=== PATIENT | male | born 1985 | race Caucasian/White ===

== ENCOUNTER 2016-12-10 01:37 | Emergency (ER) | payer SELFPAY ==
[~2016-12-10] VITALS: Ht 190.5 cm; Wt 67.6 kg
[2016-12-10 01:42] VITALS: Ht 190.5 cm; Wt 67.6 kg
[2016-12-10] MEDS ORDERED: ESOM20CA PO (02:01)
[2016-12-10] MEDS ORDERED: OPTIRAY 320 IV PRN (02:30)
--- NOTE | 2016-12-10 02:35 | EMERGENCY ROOM VISIT NOTE ---
History Report prepared by Mario: Mary Grace Clemens Under the Supervision of: Dr. Elda Sanches M.D. First contact with patient: 01:47 Chief Complaint: RIB PAIN Stated Complaint: ABDOMINAL PAIN History of Present Illness The patient is a 31 year old male who presents to the Emergency Room with complaints of severe and worsening left lower rib pain starting 5 days ago. He was wrestling 5 days ago when he was thrown on the ground flat on his back. He has worsening pain with breathing and coughing. The patient denies fevers, chills, abdominal pain, or any other complaints. Source of History: patient Onset: 5 days ago Position: other (left lower rib) Symptom Intensity: severe Timing: worsening Modifying Factors (Worsening): breathing, other (coughing) Associated Symptoms: No abdominal pain, No chills, No fevers Review of Systems See HPI for pertinent positives & negatives. A total of 10 systems reviewed and were otherwise negative. Past Medical & Surgical Medical Problems: (1) No Known Active Medical Problems Family History Patient reports no known family medical history. Social History Smoking Status: Never Smoker Marital Status: single Occupation Status: employed Current/Historical Medications Scheduled Esomeprazole Magnesium (Nexium), 20 MG PO BID Allergies Coded Allergies: No Known Allergies (Unverified , 12/10/16) Physical Exam Vital Signs Date Time Temp Pulse Resp B/P Pulse Ox O2 Delivery O2 Flow Rate FiO2 12/10/16 04:16 36.8 86 18 124/76 98 12/10/16 04:08 86 18 124/76 98 Room Air 12/10/16 03:04 90 16 141/76 100 Room Air 12/10/16 01:42 36.8 90 16 124/81 95 Room Air Physical Exam Vital signs reviewed. General: Well-appearing, in no significant distress. HEENT: No scleral icterus, PERRLA, neck supple. Atraumatic. Chest: Mild tenderness along the right anterior chest. Cardiovascular: Regular rate and rhythm, no extra sounds. Pulmonary: Clear to auscultation bilaterally, normal work of breathing. Abdomen: Soft, nontender, nondistended, positive bowel sounds. : Ecchymotic left hemiscrotum with pea-sized mass near the epididymis, no testicular torsion, no particular tender area. Musculoskeletal: Atraumatic, no peripheral edema. Neurologic: Patient awake alert and oriented x 3, full strength in all 4 extremities. Cranial nerves 2 through 12 grossly intact. Skin: Warm, dry, no rash Medical Decision & Procedures ER Provider Diagnostic Interpretation: X-ray results as stated below per interpretation by me: CHEST X-RAY No acute rib fracture, no pneumothorax, no focal lung consolidation. CT results as stated below per my review and radiologist interpretation: CT CHEST WITH CONTRAST No evidence of acute chest abnormality to account for symptoms. No rib fracture , focal consolidation, pleural effusion or pneumothorax. Nonspecific 4 mm RLL nodule (Series 4, Image 117). Radiologist: Briana Lee MD Laboratory Results 12/10/16 01:45 Red Blood Count 4.67, Mean Corpuscular Volume 81.4, Mean Corpuscular Hemoglobin 28.9, Mean Corpuscular Hemoglobin Concent 35.5, Mean Platelet Volume 10.9, Neutrophils (%) (Auto) 62.3, Lymphocytes (%) (Auto) 26.9, Monocytes (%) (Auto) 9.0, Eosinophils (%) (Auto) 1.3, Basophils (%) (Auto) 0.3, Neutrophils # (Auto) 7.16, Lymphocytes # (Auto) 3.09, Monocytes # (Auto) 1.04, Eosinophils # (Auto) 0.15, Basophils # (Auto) 0.04 12/10/16 01:45 Test 12/10/16 01:45 White Blood Count 11.50 K/uL (4.8-10.8) Red Blood Count 4.67 M/uL (4.7-6.1) Hemoglobin 13.5 g/dL (14.0-18.0) Hematocrit 38.0 % (42-52) Mean Corpuscular Volume 81.4 fL (80-100) Mean Corpuscular Hemoglobin 28.9 pg (25-34) Mean Corpuscular Hemoglobin Concent 35.5 g/dl (32-36) Platelet Count 269 K/uL (130-400) Mean Platelet Volume 10.9 fL (7.4-10.4) Neutrophils (%) (Auto) 62.3 % Lymphocytes (%) (Auto) 26.9 % Monocytes (%) (Auto) 9.0 % Eosinophils (%) (Auto) 1.3 % Basophils (%) (Auto) 0.3 % Neutrophils # (Auto) 7.16 K/uL (1.4-6.5) Lymphocytes # (Auto) 3.09 K/uL (1.2-3.4) Monocytes # (Auto) 1.04 K/uL (0.11-0.59) Eosinophils # (Auto) 0.15 K/uL (0-0.5) Basophils # (Auto) 0.04 K/uL (0-0.2) RDW Standard Deviation 40.3 fL (36.4-46.3) RDW Coefficient of Variation 13.5 % (11.5-14.5) Immature Granulocyte % (Auto) 0.2 % Immature Granulocyte # (Auto) 0.02 K/uL (0.00-0.02) Anion Gap 7.0 mmol/L (3-11) Est Creatinine Clear Calc Drug Dose 114.8 ml/min Estimated GFR () 132.4 Estimated GFR (Non- 114.2 BUN/Creatinine Ratio 11.8 (10-20) Calcium Level 8.8 mg/dl (8.5-10.1) Total Bilirubin 0.3 mg/dl (0.2-1) Direct Bilirubin < 0.1 mg/dl (0-0.2) Aspartate Amino Transf (AST/SGOT) 20 U/L (15-37) Alanine Aminotransferase (ALT/SGPT) 41 U/L (12-78) Alkaline Phosphatase 83 U/L (45-117) Total Protein 8.0 gm/dl (6.4-8.2) Albumin 3.7 gm/dl (3.4-5.0) Laboratory results per my review. ED Course 0147: Past medical records reviewed. The patient was evaluated in room A11B. A complete history and physical examination was performed. 0325: The patient is complaining of scrotal pain. I performed exam. He reported that he had 2 ultrasounds of scrotum performed in [place] and was told to follow up with urology. 0410: Upon reevaluation, the patient appeared to have improvement of his symptoms. I discussed findings with the patient. He demanded pain medications. He told me that he uses dope on the weekends and should have just gone to campus to buy heroine and save his 10 grand. He stated that he is not paying his bill. The patient was discharged home. Medical Decision Differential diagnosis: Acute coronary syndrome, pulmonary embolus, aortic dissection, musculoskeletal pain, pneumonia, pleural effusion, pneumothorax, rib fracture This patient was evaluated and appeared to be in no significant distress. IV access was obtained and laboratory work was drawn. The patient was placed on the manager cardiac and found to be in a normal sinus rhythm. Chest x-ray with rib series was performed and to my interpretation reveals no evidence of rib fracture or pneumothorax. The patient continued to complain of significant discomfort. Chest CT was performed and reveals no fracture or pneumothorax. There is no evidence of focal lung consolidation. There is an indeterminate 4 mm right lower lobe pulmonary nodule appreciated. The patient is less than 35 years of age and according to the Fleischner criteria the patient does not warrant follow-up due to his young age. I did inform the patient the findings. He became irate when he wasn't informed to would not be receiving any pain medication. He demanded 4 days off of work and medications. He was offered a Narvon tablet but stated "I don't need anything to detox." When he was informed that this was a pain medication similar to Vicodin, he declined and stated he would at least need several days worth. The patient became belligerent and refused to sign paperwork. He left without receiving discharge instructions, because he would not take them. The patient was strongly encouraged to follow- up with urology regarding the scrotal ecchymosis and his primary care physician for the rib contusions. He will return to the ER for worsening of symptoms or any medical concerns. [place] Drug Monitoring Program Search Results: patient reviewed within database Drug Monitoring Findings: patient not found Impression Primary Impression: Right-sided chest wall pain Additional Impression: Bruise of scrotum Scribe Attestation The scribe's documentation has been prepared under my direction and personally reviewed by me in its entirety. I confirm that the note above accurately reflects all work, treatment, procedures, and medical decision making performed by me. Departure Information Dispostion Home / Self-Care Referrals No Doctor, Assigned (PCP) Forms HOME CARE DOCUMENTATION FORM, IMPORTANT VISIT INFORMATION, WORK / SCHOOL INSTRUCTIONS Patient Instructions My [facility] Additional Instructions Diagnosis: Right chest wall pain, scrotal ecchymosis Wear supportive underwear, such as briefs. Ibuprofen 600 mg every 6 hours as needed for pain with food. Warm compresses and gentle stretching. Follow up with your doctor this week for reevaluation. Return to emergency for worsening of symptoms or any medical concerns. Problem Qualifiers
[2016-12-10 02:38] LABS: BASO % 0.3 %; BASO ABS # 0.04 K/uL (0-0.2); COMPLETE YES; EOS % 1.3 %; IG% 0.2 %; LYMPH % 26.9 %; LYMPH ABS # 3.09 K/uL (1.2-3.4); MEAN CELL VOLUME 81.4 fL (80-100); MEAN CORPUSCULAR HEMOGLOBIN 28.9 pg (25-34); MEAN CORPUSCULAR HGB CONC 35.5 g/dl (32-36); MEAN PLATELET VOLUME 10.9 fL (7.4-10.4); NEUT % 62.3 %; PLATELET COUNT 269 K/uL (130-400); RED BLOOD COUNT 4.67 M/uL (4.7-6.1)
[2016-12-10 02:46] LABS: ALT/SGPT 41 U/L (12-78); AST/SGOT 20 U/L (15-37); BLOOD UREA NITROGEN 11 mg/dl (7-18); BUN/CREATININE RATIO 11.8 (10-20); CALCIUM 8.8 mg/dl (8.5-10.1); CARBON DIOXIDE 31 mmol/L (21-32); CHLORIDE 102 mmol/L (98-107); GLUCOSE 99 mg/dl (70-99); POTASSIUM 3.5 mmol/L (3.5-5.1); SODIUM 140 mmol/L (136-145)
[2016-12-10 02:49] LABS: ALKALINE PHOSPHATASE 83 U/L (45-117)
[2016-12-10 04:16] VITALS: BP 124/76; PULSE 86; TEMP 36.8; O2SAT 98
--- NOTE | 2016-12-10 07:29 | DIAGNOSTIC IMAGING REPORT ---
CHEST CT WITH CONTRAST CT DOSE: 232.64 mGy.cm HISTORY: Right-sided rib pain. TECHNIQUE: Multiaxial CT images of the chest were performed following the intravenous administration of contrast. COMPARISON: None. FINDINGS: A 4 mm nodule within the right lower lobe on image 117. No fractures within the visualized osseous structures. The mediastinal vascular structures are within normal limits. No mediastinal or hilar lymphadenopathy. No pleural effusion or pneumothorax. Limited views of the upper abdomen demonstrate a normal liver and spleen. IMPRESSION: 1. No acute process within the chest. No rib fractures. No pneumothorax. 2. An indeterminate 4 mm right lower lobe pulmonary nodule. Please refer to the chart below for recommended follow-up. Please refer to below summary of Fleischner criteria recommendations for follow-up of incidental CT nodules (Salo Waller, Guidelines for management of small pulmonary nodules detected on CT scans: A statement from the Fleischner Society, Radiology 237: [phone].) SOLID NODULES Solitary nodule size: <6 mm * low risk patients: no follow-up needed * high risk patients: optional CT at 12 months Solitary nodule size: 6-8 mm * low risk patients: follow-up at 6-12 months, then consider further follow-up at 18-24 months * high risk patients: initial follow-up CT at 6-12 months and then at 18-24 months if no change Solitary nodule size: >8 mm * either low or high risk patients - consider follow-up CT at 3 months, and/or CT-PET, and/or biopsy Multiple nodules size: <6 mm * low risk patients: no routine follow-up * high risk patients: optional CT at 12 months Multiple nodules size: 6-8 mm * low risk patients: follow-up at 3-6 months, then consider further follow-up at 18-24 months * high risk patients: follow-up at 3-6 months, then at 18-24 months if no change Multiple nodules size: >8 mm * low risk patients: follow-up at 3-6 months, then consider further follow-up at 18-24 months * high risk patients: follow-up at 3-6 months, then at 18-24 months if no change Note: newly detected indeterminate nodule in persons 35 years of age or older. * low risk patients: minimal or absent history of smoking and/or other known risk factors * high risk patients: history of smoking or of other known risk factors (e.g. first degree relative with lung cancer, or exposure to asbestos, radon, uranium) * if a nodule up to 8 mm is partly solid or is ground glass further follow-up is required after 24 months to exclude possible slow growing adenocarcinoma (VICENTA) SUBSOLID NODULES Solitary pure ground-glass nodule * nodule size <6 mm - no CT follow-up required * nodule size >=6 mm - follow-up CT at 6-12 months, then every 2 years until 5 years Solitary part-solid nodule * nodule size <6 mm - no CT follow-up required * nodule size >=6 mm - follow-up CT at 3-6 months. If unchanged, and solid component remains <6 mm, then annual follow-up for 5 years Multiple subsolid nodules * nodule size <6 mm - follow-up CT at 3-6 months, consider further follow-up at 2 and 4 years if stable * nodule size >=6 mm - follow-up CT at 3-6 months, subsequent management based on the most suspicious nodule(s) Electronically signed by: Margarito Head M.D. 12/10/2016 7:27 AM Dictated Date/Time: 12/10/2016 7:23 AM
--- NOTE | 2016-12-10 08:21 | DIAGNOSTIC IMAGING REPORT ---
PA CHEST WITH RIGHT-SIDED RIB SERIES CLINICAL HISTORY: Right-sided chest wall pain. Dyspnea. FINDINGS: A PA chest radiograph with 4 additional views may right-sided rib series is correlated with chest CT performed the same day 12/10/2016. The cardiomediastinal silhouette is unremarkable. The lungs and pleural spaces are clear. No pneumothorax is seen. There is no radiographic evidence of right-sided rib fracture on the rib series as clinically queried. The remainder of the bony thorax is grossly intact. IMPRESSION: 1. The lungs are clear. 2. There is no radiographic evidence of right-sided rib fracture as clinically queried. Electronically signed by: Zhen Mcdonough M.D. 12/10/2016 8:19 AM Dictated Date/Time: 12/10/2016 8:17 AM
== END 2016-12-10 04:15 | disposition home or self-care (01) ==
LOC: EDBD 01:37 → C.EDA 01:40
DX: R07.89 Other chest pain (principal); S30.22XA Contusion of scrotum and testes, initial encounter; X58.XXXA Exposure to other specified factors, initial encounter